=== PATIENT | female | born 1955 | race Asian ===

== ENCOUNTER 2018-11-02 16:45 | Emergency (ER) | payer OTHER, BC ==
[2018-11-02] MEDS: IPRATROPIUM (NEB) 0.5 MG/2.5 ML AMP INH (17:36)
[2018-11-02] MEDS: LEVALBUTEROL (NEB) 1.25 MG/0.5 ML AMP INH (17:36)
[2018-11-02 17:40] LABS: ADD MAN DIFF? NO
[2018-11-02] MEDS: SOD CHLORIDE 0.9% 1,000 ML IV (17:41)
[2018-11-02 17:47] LABS: BASOPHILS % 0.5 % (0.0-2.0); EOSINOPHILS # 0.5 10^3/ul (0.0-0.5); EOSINOPHILS % 8.7 % (0.0-7.0); HEMATOCRIT 40.5 % (37.0-47.0); HEMOGLOBIN 13.6 g/dl (12.0-16.0); LYMPHOCYTES # 2.1 10^3/ul (0.8-2.9); MEAN CORPUSCULAR HEMOGLOBIN 30.4 pg (29.0-33.0); MEAN CORPUSCULAR HGB CONC 33.6 g/dl (32.0-37.0); MEAN CORPUSCULAR VOLUME 90.4 fl (82.0-101.0); MEAN PLATELET VOLUME 9.5 fl (7.4-10.4); MONOCYTE # 0.7 10^3/ul (0.3-0.9); MONOCYTES % 11.4 % (0.0-11.0); NEUTROPHIL # 2.5 10^3/ul (1.6-7.5); NEUTROPHILS % 43.2 % (39.0-77.0); PLATELET COUNT 320 10^3/UL (140-415); RED BLOOD COUNT 4.48 10^6/ul (4.20-5.40); RED CELL DISTRIBUTION WIDTH 12.3 % (11.5-14.5)
[2018-11-02 17:47] LABS: WHITE BLOOD COUNT 5.8 10^3/ul (4.8-10.8)
[2018-11-02 18:07] LABS: INR 0.89; PROTIME 12.2 Sec (11.9-14.9)
[2018-11-02 18:08] LABS: PARTIAL THROMBOPLASTIN TIME 31.5 Sec (23.0-35.0)
[2018-11-02 18:10] LABS: ANION GAP 9 (5-13); BLOOD UREA NITROGEN 25 mg/dl (7-20); CALCIUM 9.9 mg/dl (8.4-10.2); CARBON DIOXIDE 25 mmol/L (21-31); CHLORIDE 106 mmol/L (97-110); CREATININE 0.66 mg/dl (0.44-1.00); Estimated GFR > 60 mL/min (>60); GLUCOSE 97 mg/dl (70-220); POTASSIUM 4.1 mmol/L (3.5-5.1); SODIUM 140 mmol/L (135-144)
[2018-11-02 18:21] LABS: TROPONIN-I 0.026 ng/ml (0.000-0.120)
[2018-11-02] MEDS: KETOROLAC 15 MG INJ IV (18:49)
[2018-11-02 21:05] LABS: TROPONIN-I 0.019 ng/ml (0.000-0.120)
== END 2018-11-02 22:34 | disposition home or self-care (01) ==
LOC: E/R 16:45
DX: J45.901 Unspecified asthma with (acute) exacerbation (principal); E86.0 Dehydration; M25.511 Pain in right shoulder
CPT/HCPCS: 36415; 71045; 73020; 80048; 84484; 85025; 85378; 85610; 85730; 93005; 94644; 96374; 99285-25